=== PATIENT | female | born 1990 | race American Indian/Alaskan Native ===

== ENCOUNTER 2019-01-31 14:03 | Emergency (ER) | payer OTHER ==
--- NOTE | 2019-01-31 14:38 | Emergency Department Report ---
Blank Doc - Documentation Documentation: 28 y/o obese female with pmh of recurrent RENTERIA reports having a RENTERIA this morning and it did not respond to OTC medication. RENTERIA associated with vomiting.
[2019-01-31 14:39] VITALS: BP 127/78
[2019-01-31 15:46] LABS: HCG Qualitative,Urine Negative (Negative)
[2019-01-31] MEDS ORDERED: BENADRYL PO ONE (17:10)
[2019-01-31] MEDS ORDERED: TYLENOL PO ONE (17:10)
[2019-01-31] MEDS ORDERED: DELTASONE PO ONE (17:10)
[2019-01-31] MEDS ORDERED: REGLAN PO ONE (17:10)
--- NOTE | 2019-01-31 17:15 | Emergency Department Report ---
ED Headache HPI - General Chief Complaint: Headache Stated Complaint: N/V HEADACHE Time Seen by Provider: 01/31/19 14:37 - History of Present Illness Initial Comments: 28 y/o obese female with pmh of recurrent RENTERIA reports having a RENTERIA this morning and it did not respond to OTC medication. RENTERIA associated with vomiting. this headache in usual location, intensity and duration as headaches of past, pt is now tolerating po intake without n/v , there is no fever , pain id 4/10 frontal Timing/Duration: constant Quality: moderate Head Injury Location: frontal Recent Head Trauma: occasional headaches Modifying Factors: improves with: movement Associated Symptoms: nausea/vomiting Allergies/Adverse Reactions: Allergies No Known Allergies Allergy (Unverified 01/31/19 14:06) Home Medications: Ambulatory Orders Acetaminophen [Acetaminophen TAB] 1,000 mg PO Q6HR PRN #30 tablet 01/31/19 Metoclopramide [Reglan] 10 mg PO Q6H PRN #30 tablet 01/31/19 diphenhydrAMINE [Benadryl CAP] 25 mg PO Q6HR PRN #30 capsule 01/31/19 ED Review of Systems ROS: Stated complaint: N/V HEADACHE Other details as noted in HPI Constitutional: denies: chills, fever ENT: throat pain, congestion Respiratory: cough. denies: shortness of breath, wheezing Cardiovascular: denies: chest pain, palpitations Endocrine: no symptoms reported Gastrointestinal: nausea, vomiting Genitourinary: denies: urgency, dysuria, discharge Musculoskeletal: denies: back pain, joint swelling, arthralgia Skin: denies: rash, lesions Neurological: denies: headache, weakness, paresthesias Psychiatric: denies: anxiety, depression Hematological/Lymphatic: denies: easy bleeding, easy bruising ED Past Medical Hx - Past Medical History Previous Medical History?: No - Surgical History Past Surgical History?: No - Social History Smoking Status: Never Smoker Substance Use Type: None - Medications Home Medications: Home Medications Medication Instructions Recorded Confirmed Last Taken Type Acetaminophen [Acetaminophen TAB] 1,000 mg PO Q6HR PRN #30 tablet 01/31/19 Unknown Rx Metoclopramide [Reglan] 10 mg PO Q6H PRN #30 tablet 01/31/19 Unknown Rx diphenhydrAMINE [Benadryl CAP] 25 mg PO Q6HR PRN #30 capsule 01/31/19 Unknown Rx ED Physical Exam - General Limitations: No Limitations General appearance: alert, in no apparent distress - Head Head exam: Present: atraumatic, normocephalic - Eye Eye exam: Present: normal appearance, PERRL, EOMI Pupils: Present: normal accommodation - ENT ENT exam: Present: mucous membranes moist, other (turbinates boggys clear post nasal drip bilat frontal and maxillary sinus tenderness to palpation) - Expanded ENT Exam Expanded Ear exam: Present: normal external inspection Throat exam: Positive: tonsillar erythema, tonsillomegaly, other (uvula midline no exudate no lesions no stridor ). Negative: tonsillar exudate, R peritonsillar mass, L peritonsillar mass - Neck Neck exam: Present: normal inspection, full ROM. Absent: tenderness (no posterior vertebral point tenderness ), meningismus, lymphadenopathy, thyromegaly - Expanded Neck Exam Expanded Neck exam: Absent: tenderness, midline deformity, anterior neck swelling, thyroid mass, carotid bruit, tracheal deviation - Respiratory Respiratory exam: Present: normal lung sounds bilaterally. Absent: wheezes, stridor, chest wall tenderness - Cardiovascular Cardiovascular Exam: Present: regular rate, normal rhythm, normal heart sounds. Absent: systolic murmur, diastolic murmur, rubs, gallop - GI/Abdominal GI/Abdominal exam: Present: soft, normal bowel sounds. Absent: tenderness, guarding, rebound, rigid, bruit, hernia - Rectal Rectal exam: Present: deferred - Extremities Exam Extremities exam: Present: normal inspection, full ROM. Absent: tenderness - Back Exam Back exam: Present: normal inspection, full ROM. Absent: tenderness, rash noted - Neurological Exam Neurological exam: Present: alert, oriented X3, CN II-XII intact, normal gait, reflexes normal - Expanded Neurological Exam Expanded Patient oriented to: Present: person, place, time Speech: Present: fluid speech Cranial nerves: EOM's Intact: Normal, Gag Reflex: Normal, Tongue Deviation: Normal, Nystagmus: Normal, Facial Sensation: Normal Cerebellar function: Finger to Nose: Normal, Heel to [place]: Normal, Romberg: Normal Upper motor neuron: Rodolfo Neglect: Normal, Pronator Drift: Normal, Babinski Sign: Normal, Sensory Extinction: Normal Sensory exam: Upper Extremity Light Touch: Normal, Upper Extremity Pin Prick: Normal, Upper Extremity Temperature: Normal, UE 2 Point Discrimination: Normal, Lower Extremity Light Touch: Normal, Lower Extremity Pin Prick: Normal, Lower Extremity Temperature: Normal, LE 2 Point Discrimination: Normal Motor strength exam: RUE: 5, LUE: 5, RLE: 5, LLE: 5 DTR: bicep (R): 2+, bicep (L): 2+, ankle (R): 2+, ankle (L): 2+ Best Eye Response ([place]): (4) open spontaneously Best Motor Response ([place]): (6) obeys commands Best Verbal Response (Yancy): (5) oriented Yancy Total: 15 - Psychiatric Psychiatric exam: Present: normal affect, normal mood - Skin Skin exam: Present: warm, dry, intact, normal color. Absent: rash ED Course Vital Signs 01/31/19 14:37 Temperature 98 F Pulse Rate 75 Respiratory 16 Rate Blood Pressure 127/78 [Left] O2 Sat by Pulse 98 Oximetry Critical care attestation.: If time is entered above; I have spent that time in minutes in the direct care of this critically ill patient, excluding procedure time. ED Disposition Clinical Impression: Headache Qualifiers: Headache type: unspecified Headache chronicity pattern: acute headache Intractability: not intractable Qualified Code(s): R51 - Headache Disposition: - TO HOME OR SELFCARE Is pt being admited?: No Does the pt Need Aspirin: No Condition: Stable Instructions: Acute Headache (ED) Prescriptions: Acetaminophen [Acetaminophen TAB] 1,000 mg PO Q6HR PRN #30 tablet PRN Reason: Headache diphenhydrAMINE [Benadryl CAP] 25 mg PO Q6HR PRN #30 capsule PRN Reason: Headache Metoclopramide [Reglan] 10 mg PO Q6H PRN #30 tablet PRN Reason: Headache Referrals: AKIN ELLIS MD [Referring] - 3-5 Days Forms: Work/School Release Form(ED) Time of Disposition: 17:33
== END 2019-01-31 17:59 | disposition home or self-care (01) ==
LOC: ED 14:03
DX: R51 Headache (principal); R11.10 Vomiting, unspecified
CPT/HCPCS: 81025; 99283; J7512

== ENCOUNTER 2020-08-15 20:35 | Emergency (ER) | payer OTHER ==
--- NOTE | 2020-08-15 22:49 | Event Note ---
ED Screening Note ED Screening Note: nausea and headache for 3 days one episode vomiting states she took aleve twice no fever no diarrhea no dysuria no cough no SOB no CP states is currently on cycle PMHx none no allergies to meds This initial assessment/diagnostic orders/clinical plan/treatment(s) is/are subject to change based on patients health status, clinical progression and re- assessment by fellow clinical providers in the ED. Further treatment and workup at subsequent clinical providers discretion. Patient/guardian urged not to elope from the ED as their condition may be serious if not clinically assessed and managed. Initial orders include: ua, urine preg
[2020-08-16 00:55] LABS: Bilirubin,Urine NEG (Negative); Blood,Urine LG (Negative); Color,Urine Yellow (Yellow); Mucus,Urine 2+ /HPF
[2020-08-16 00:57] LABS: RBC,Urine > 182.0 /HPF (0.0-6.0)
[2020-08-16 00:59] LABS: HCG Qualitative,Urine Negative (Negative)
== END 2020-08-16 01:25 ==
LOC: ED 20:35
DX: R11.2 Nausea with vomiting, unspecified (principal); R51.9 Headache, unspecified; Z53.21 Procedure and treatment not carried out due to patient leaving prior to being seen by health care provider
CPT/HCPCS: 81001; 81025; 87086